=== PATIENT | male | born 1960 | race Caucasian/White ===

== ENCOUNTER 2022-10-28 23:52 | Emergency (ER) | payer OTHER ==
[~2022-10-28] VITALS: Ht 180.3 cm; Wt 133.8 kg
--- NOTE | 2022-10-29 00:02 | NUR ---
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 MONITORS APPLIED DR. ZURITA NOTIFIED.
[2022-10-29 00:11] VITALS: BP 124/55
[2022-10-29] MEDS ORDERED: KEFLEX PO STA (00:12)
[2022-10-29] MEDS ORDERED: KEFLEX PO ONE (00:13)
--- NOTE | 2022-10-29 00:18 | ER.PDOC ---
General Chief Complaint: Requesting Medical Care Stated Complaint: FINGER PAIN Time seen by MD: 00:05 Source: patient Exam Limitations: no limitations History of Present Illness Initial Comments 61-year-old presents to the emergency room with a 2-day history of right index finger tip pain has been progressively getting worse. Onset is after he scraped his finger against a metal piece. Denies fevers or chills Where: work Severity: moderate Location of Injury: (R) fingers Modifying Factors: pain on movement Past Medical History Medical History: no pertinent history Review of Systems Constitutional: denies no symptoms reported, denies see HPI, denies chills, denies diaphoresis, denies fever, denies malaise, denies weakness, denies other EENTM: denies no symptoms reported, denies see HPI, denies eye pain, denies blurred vision, denies tearing, denies double vision, denies ear pain, denies ear discharge, denies nose pain, denies nose congestion, denies throat pain, denies throat swelling, denies mouth pain, denies mouth swelling, denies other Musculoskeletal: see HPI Physical Exam General Appearance: Alert, No Apparent Distress Hand: nml inspection (xpt distal R index finger w mild erythema and tender to palp), no evidence FB 1 - tender Neuro: sensation nml, motor nml Vascular: no vascular compromise Tendons: tendon function nml Skin: warm/dry Head/ENT: nml inspection, pharynx nml Neck/Back: nml inspection, non-tender Resp/CVS: no resp distress, lungs clear, heart sounds nml, reg. rate & rhythm Abdomen: non-tender, no organomegaly Results/Orders Results/Orders Orders - BRIDGETT ZURITA MD Cephalexin (Keflex) (10/29/22 00:12) ER DEPART Departure Time of Disposition: 00:17 Disposition: 01 HOME / SELF CARE / HOMELESS Impression: Primary Impression: Cellulitis of right index finger Condition: Stable Patient Instructions: Cellulitis Referrals: YENIFER BARRON MD (PCP) PRIMARY CARE PROVIDER Duration or Time Spent with Pa: 25 BRIDGETT ZURITA MD Oct 29, 2022 00:18
== END 2022-10-29 00:21 | disposition home or self-care (01) ==
LOC: ER 23:52
DX: S69.91XA Unspecified injury of right wrist, hand and finger(s), initial encounter (principal); L03.011 Cellulitis of right finger; X58.XXXA Exposure to other specified factors, initial encounter; Y93.89 Activity, other specified; Y92.89 Other specified places as the place of occurrence of the external cause; Y99.8 Other external cause status
CPT/HCPCS: 99283

== ENCOUNTER → 2023-08-08 | Outpatient (CLI) | payer OTHER ==
[2023-08-08 09:44] LABS: BASOPHIL % 0.6 % (0.0-0.2); EOSINOPHIL # 0.2 10^3/uL (0.0-0.2); EOSINOPHIL % 3.9 % (0.0-5.0); HEMATOCRIT(ML) 40.3 % (37.0-53.0); HEMOGLOBIN 13.6 g/dL (13.9-16.3); IG % 0.4 % (0.00-0.50); LYMPHOCYTES # 1.12 10^3/uL1 (1.0-4.8); LYMPHOCYTES % 22.7 % (24.0-44.0); MEAN CORP HGB 29.4 pg (26-34); MEAN CORP HGB CONCENTRATION 33.7 g/dL (33-36.5); MEAN CORP VOLUME 87.2 fL (78-100); MONOCYTES # 0.4 10^3/uL (0.3-0.8); MONOCYTES % 8.3 % (5.0-12.0); NEUTROPHIL # 3.2 10^3/uL (1.8-7.7); NEUTROPHILS % 64.1 % (41.0-85.0); RED BLOOD CELL 4.62 10^6/uL (4.50-5.90); RED CELL DISTRIBUTION WIDTH 13.7 % (11.5-14.5); WHITE BLOOD CELL 4.9 10^3/uL (4.5-11.0)
[2023-08-08 10:22] LABS: ALBUMIN(ML) 3.3 g/dL (3.4-5.0); ALBUMIN/GLOBULIN RATIO 0.942; ANION GAP 11.6; BUN/CREATININE RATIO 9.3 (10.0-20.0); CALCIUM 8.6 mg/dL (8.4-10.5); CARBON DIOXIDE 26.6 mmol/L (20.0-32); CREATININE SERUM 1.29 mg/dL (0.59-1.40); EST GFR, NON-AA 56.6 (>/=60); LDL/HDL RATIO 1.6; POTASSIUM 4.2 mmol/L (3.6-5.2)
== END | disposition home or self-care (01) ==
LOC: LAB 09:11
PROVIDERS: ATTEND Internal Medicine
DX: Z00.00 Encounter for general adult medical examination without abnormal findings (principal); Z12.5 Encounter for screening for malignant neoplasm of prostate; R53.83 Other fatigue; R73.09 Other abnormal glucose; B35.1 Tinea unguium
CPT/HCPCS: 36415; 80053; 80061; 83036; 84153; 84403; 85025

== ENCOUNTER → 2024-08-10 | Outpatient (CLI) | payer OTHER ==
[2024-08-10 11:36] LABS: BASOPHIL # 0.1 10^3/uL (0.0-0.1); BASOPHIL % 1.4 % (0.2-1.2); EOSINOPHIL # 0.2 10^3/uL (0.0-0.2); EOSINOPHIL % 2.9 % (0.0-5.0); HEMATOCRIT(ML) 41.3 % (37.0-53.0); HEMOGLOBIN 13.7 g/dL (13.9-16.3); LYMPHOCYTES # 1.05 10^3/uL1 (1.0-4.8); MEAN CORP HGB 29.1 pg (26-34); MEAN CORP HGB CONCENTRATION 33.2 g/dL (33-36.5); MEAN CORP VOLUME 87.7 fL (78-100); MONOCYTES # 0.5 10^3/uL (0.3-0.8); MONOCYTES % 8.1 % (5.0-12.0); NEUTROPHIL # 3.8 10^3/uL (1.8-7.7); NEUTROPHILS % 68.4 % (41.0-85.0); PLATELET COUNT 190 10^3/uL (150-400); RED BLOOD CELL 4.71 10^6/uL (4.50-5.90); RED CELL DISTRIBUTION WIDTH 13.6 % (11.5-14.5); WHITE BLOOD CELL 5.5 10^3/uL (4.5-11.0)
[2024-08-10 11:37] LABS: +ADD MANUAL DIFF(NO CHRG) NO
[2024-08-10 12:15] LABS: ALBUMIN(ML) 3.6 g/dL (3.4-5.0); ANION GAP 7.3; BUN/CREATININE RATIO 15.31 (10.0-20.0); CALCIUM 8.4 mg/dL (8.4-10.5); CARBON DIOXIDE 31.6 mmol/L (20.0-32); CREATININE SERUM 1.11 mg/dL (0.59-1.40); EST GFR, NON-AA 67.1 (>/=60); LDL/HDL RATIO 1.9; POTASSIUM 3.9 mmol/L (3.6-5.2)
== END | disposition home or self-care (01) ==
LOC: LAB 11:10
PROVIDERS: ATTEND Internal Medicine
DX: Z12.5 Encounter for screening for malignant neoplasm of prostate (principal); Z00.00 Encounter for general adult medical examination without abnormal findings; R73.09 Other abnormal glucose; R53.83 Other fatigue
CPT/HCPCS: 84403; 84443; 80061; 80053; 83036; 36415; 84439; 85025; G0103